=== PATIENT | female | born 1965 | race Caucasian/White ===

== ENCOUNTER → 2023-09-27 12:48 | Outpatient (REF) | payer OTHER, SELFPAY | LOC: WDC 12:48 | PROVIDERS: ATTENDING PHYSICIAN Obstetrics & Gynecology; FAMILY PHYSICIAN Internal Medicine | DX: Z12.31 Encounter for screening mammogram for malignant neoplasm of breast (principal) | CPT/HCPCS: 77063; 77067 ==

== ENCOUNTER → 2024-01-23 10:15 | Outpatient (REF) | payer SELFPAY | LOC: RAD 10:15 | PROVIDERS: ATTENDING PHYSICIAN Nurse Practitioner | DX: Z00.00 Encounter for general adult medical examination without abnormal findings (principal); E78.5 Hyperlipidemia, unspecified | CPT/HCPCS: 75571 ==

== ENCOUNTER 2024-08-22 06:32 | Day surgery (SDC) | payer OTHER, SELFPAY | END 2024-08-22 14:14 | disposition home or self-care (01) | LOC: GI 06:32 | PROVIDERS: ATTENDING PHYSICIAN Internal Medicine Gastroenterology; FAMILY PHYSICIAN Internal Medicine | DX: Z12.11 Encounter for screening for malignant neoplasm of colon (principal); K57.30 Diverticulosis of large intestine without perforation or abscess without bleeding; K64.0 First degree hemorrhoids; R13.10 Dysphagia, unspecified; R12 Heartburn; K31.7 Polyp of stomach and duodenum; D12.2 Benign neoplasm of ascending colon; K29.50 Unspecified chronic gastritis without bleeding | CPT/HCPCS: 45380; 43239; 88305; 88342 ==

== ENCOUNTER → 2024-08-25 08:57 | Outpatient (REF) | payer OTHER, SELFPAY ==
[2024-08-25 09:30] LABS: % Basophils 0.5 % (0-2); % Immature Granulocytes 0.5 % (0-0.5); % Lymphocytes 25.3 % (20.5-51.1); % Monocytes 8.8 % (1.7-9.3); % Neutrophils 63.9 % (42.2-75.2); Absolute Monocytes 0.4 10^3/uL (0.1-0.6); Absolute Neutrophils 2.6 10^3/uL (1.4-6.5); Hematocrit 43.4 % (37.0-47.0); Hemoglobin 14.6 g/dL (12.0-16.0); Mean Corp Hgb Conc. 33.6 g/dL (33.0-37.0); Mean Corpuscular Hgb 30.2 pg (27.0-31.0); Mean Corpuscular Volume 89.7 fL (81.0-99.0); Mean Platelet Volume 10.2 fL (7.4-10.4); Nucleated Red Blood Cells % 0 %; Platelet Count 195 10^3/uL (130-400); Red Blood Cell Count 4.84 10^6/uL (4.20-5.40); Red Cell Dist. Width 11.7 % (11.5-14.5); White Blood Cell Count 4.1 10^3/uL (4.8-10.8)
[2024-08-25 10:41] LABS: TSH 0.39 uIU/ml (0.47-4.68)
[2024-08-25 11:07] LABS: ALT (SGPT) 56 U/L (0-35); AST (SGOT) 32 U/L (14-36); Albumin 5.3 g/dl (3.5-5.0); Alkaline Phosphatase 75 U/L (38-126); Blood Urea Nitrogen 14 mg/dl (7-17); Calcium 10.1 mg/dl (8.4-10.2); Carbon Dioxide 27 mmol/L (22-30); Chloride 101 mmol/L (98-107); Glucose 101 mg/dl (70-99); HDL Cholesterol 57 mg/dl; LDL Cholesterol, Calculated 114 mg/dl; Potassium 4.7 mmol/L (3.5-5.1); Sodium 143 mmol/L (135-145); Total Bilirubin 1.2 mg/dl (0.2-1.3); Total Cholesterol 191 mg/dl (50-199); Total Protein 7.9 g/dl (6.3-8.2); Triglyceride 103 mg/dl (10-149); Very Low Density Lipoprotein 20 mg/dl (0-30); eGFR > 60.00
== END ==
LOC: REG 08:57
PROVIDERS: ATTENDING PHYSICIAN Hospitalist
DX: E78.5 Hyperlipidemia, unspecified (principal); Z00.00 Encounter for general adult medical examination without abnormal findings; R53.83 Other fatigue; G43.909 Migraine, unspecified, not intractable, without status migrainosus
CPT/HCPCS: 36415; 80053; 80061; 84443; 85025

== ENCOUNTER → 2024-08-27 12:28 | Outpatient (REF) | payer OTHER, SELFPAY | LOC: RAD 12:28 | PROVIDERS: ATTENDING PHYSICIAN Hospitalist | DX: N28.9 Disorder of kidney and ureter, unspecified (principal) | CPT/HCPCS: 74160; Q9967 ==

== ENCOUNTER → 2024-10-01 11:45 | Outpatient (REF) | payer OTHER, SELFPAY | LOC: WDC 11:45 | PROVIDERS: ATTENDING PHYSICIAN Hospitalist | DX: Z12.31 Encounter for screening mammogram for malignant neoplasm of breast (principal) | CPT/HCPCS: 77063; 77067 ==

== ENCOUNTER → 2024-11-19 13:59 | Outpatient (REF) | payer OTHER, SELFPAY | LOC: RAD 13:59 | PROVIDERS: ATTENDING PHYSICIAN Hospitalist | DX: E05.90 Thyrotoxicosis, unspecified without thyrotoxic crisis or storm (principal) | CPT/HCPCS: 76536 ==

== ENCOUNTER → 2024-12-10 08:33 | Outpatient (REF) | payer OTHER, SELFPAY ==
[2024-12-10 08:53] VITALS: BP 121/86; BP_SYST 68
== END ==
LOC: RADI 08:33
PROVIDERS: ATTENDING PHYSICIAN Nurse Practitioner Family; FAMILY PHYSICIAN Hospitalist
DX: E04.1 Nontoxic single thyroid nodule (principal)
CPT/HCPCS: 10005; 88173